=== PATIENT | female | born 1980 | race Two or more races ===

== ENCOUNTER 2022-12-03 12:32 | Inpatient (IN) | payer MEDICAID, OTHER ==
[~2022-12-03] VITALS: Ht 167.6 cm; Wt 88.3 kg
[2022-12-03] MEDS ORDERED: NITROGLYCERIN 0.4 MG SL TAB SL ONE (13:15)
[2022-12-03] MEDS ORDERED: ASPirin 325 MG TAB PO ONE (13:15)
[2022-12-03 13:18] LABS: Basophils # (auto) 0 10 ^3/uL (0-0.2); Basophils % (auto) 0.5 % (0.0-2.0); Eosinophils # (auto) 0.1 10 ^3/uL (0-0.8); Eosinophils % (auto) 0.9 % (0.0-7.0); Hematocrit 43.7 % (36.0-46.0); Hemoglobin 15.2 g/dL (12.2-16.2); Lymphocytes # (auto) 1.8 10 ^3/uL (0.4-5.4); Lymphocytes % (auto) 25.5 % (10.0-50.0); Mean Corpuscular Hgb Conc. 34.8 g/dL (32.0-36.0); Monocytes # (auto) 0.3 10 ^3/uL (0-1.3); Monocytes % (auto) 4.2 % (0.0-12.0); Neutrophils # (auto) 4.8 10 ^3/uL (1.6-8.6); Neutrophils % (auto) 68.9 % (37.0-80.0); Nucleated Red Blood Cells % 0.3 %; Red Blood Cells 4.91 10^6/uL (4.0-5.20); Red Cell Distribution Width 13.3 % (11.8-14.3)
[2022-12-03 13:31] LABS: INR 0.92 (0.9-1.15); Partial Thromboplastin Time 29.7 sec (24.6-33.4)
[2022-12-03 13:33] LABS: Albumin 3.8 g/dL (3.4-5.0); BUN/Creatinine Ratio 11.9; Magnesium 2.4 mg/dL (1.6-2.6); Potassium 4.1 mmol/L (3.5-5.1)
[2022-12-03 13:35] LABS: Bilirubin, Total 0.4 mg/dL (0.2-1.0); Total Protein 7.1 g/dL (6.4-8.2)
[2022-12-03] MEDS ORDERED: MORPHINE SULFATE INJ 2 MG/ml SYRG IV PRN (15:30)
[2022-12-03] MEDS ORDERED: TEMAZEPAM 15 MG CAP PO PRN (15:30)
[2022-12-03] MEDS ORDERED: LISINOPRIL 10 MG TAB PO ONE (15:30)
[2022-12-03] MEDS ORDERED: NITROGLYCERIN 0.4 MG SL TAB SL PRN (15:30)
[2022-12-03] MEDS ORDERED: ONDANSETRON HCL 4 MG/2 ML VIAL IV PRN (15:30)
[2022-12-03 17:27] LABS: Urine Bacteria NONE SEEN /hpf (None Seen); Urine Blood Negative /uL (Negative); Urine Mucus FEW (None Seen); Urine WBC 3 /hpf (0 - 5)
[2022-12-03 17:43] LABS: Alcohol, Urine < 3.0 mg/dL (0-10); Amphetamine Screen, Urine NEGATIVE (NEGATIVE); Barbiturate Scree,Urine NEGATIVE (NEGATIVE); Benzodiazephine Screen, Urine NEGATIVE (NEGATIVE); Cannabinoid Screen, Urine NEGATIVE (NEGATIVE); Cocaine Screen, Urine POSITIVE (NEGATIVE); Opiate Scree,Urine NEGATIVE (NEGATIVE); Phencyclidine Screen, Urine NEGATIVE (NEGATIVE)
[2022-12-03] MEDS: ACETAMINOPHEN 325 MG TAB PO PRN (18:09)
[2022-12-03] MEDS ORDERED: cloNIDine HCL 0.1 MG TAB PO PRN (18:15)
[2022-12-03 18:29] LABS: Cholesterol 195 mg/dL (< 200); Triglycerides 170 mg/dL (< 150)
[2022-12-03 18:31] LABS: HDL Cholesterol 38 mg/dL (40-59); LDL Cholesterol 131 mg/dL (< 100)
[2022-12-03] MEDS ORDERED: METH10T PO (20:50)
[2022-12-03] MEDS: ATORVASTATIN 20 MG TAB PO SCH (22:25)
[2022-12-03 22:28] VITALS: BP 132/65
[2022-12-03 22:54] VITALS: BP 132/65
[2022-12-03] MEDS ORDERED: ITRA100C2 PO (23:26)
[2022-12-04 05:19] VITALS: BP 132/78
[2022-12-04 06:41] LABS: Basophils # (auto) 0 10 ^3/uL (0-0.2); Basophils % (auto) 0.4 % (0.0-2.0); Eosinophils # (auto) 0.1 10 ^3/uL (0-0.8); Eosinophils % (auto) 1.4 % (0.0-7.0); Hematocrit 41.8 % (36.0-46.0); Hemoglobin 14.3 g/dL (12.2-16.2); Lymphocytes # (auto) 2.6 10 ^3/uL (0.4-5.4); Mean Corpuscular Hemoglobin 30.8 pg (28.0-32.0); Mean Corpuscular Hgb Conc. 34.2 g/dL (32.0-36.0); Mean Corpuscular Volume 90.3 fL (80.0-100.0); Monocytes # (auto) 0.3 10 ^3/uL (0-1.3); Monocytes % (auto) 4.3 % (0.0-12.0); Neutrophils # (auto) 3.3 10 ^3/uL (1.6-8.6); Neutrophils % (auto) 51.9 % (37.0-80.0); Nucleated Red Blood Cells % 0.3 %; Red Blood Cells 4.63 10^6/uL (4.0-5.20); Red Cell Distribution Width 13.1 % (11.8-14.3); White Blood Cell 6.3 10^3/uL (4.4-10.8)
[2022-12-04 07:26] LABS: Potassium 3.6 mmol/L (3.5-5.1)
[2022-12-04 07:40] LABS: BUN/Creatinine Ratio 21.7; Calcium 8.7 mg/dL (8.5-10.1)
[2022-12-04 09:20] VITALS: BP 100/58
[2022-12-04] MEDS ORDERED: ASPirin 81 mg TAB PO SCH (10:00)
[2022-12-04] MEDS ORDERED: LISINOPRIL 10 MG TAB PO SCH (10:00)
[2022-12-04] MEDS ORDERED: METHADONE HCL 10 MG TAB PO SCH (11:30)
[2022-12-04 13:00] VITALS: BP 125/61
[2022-12-04] MEDS ORDERED: NICOTINE 21MG/24 HR TOPICAL PATCH TD ONE (15:15)
[2022-12-04 16:00] VITALS: BP 127/68
[2022-12-04] MEDS: ACETAMINOPHEN 325 MG TAB PO PRN (20:09)
[2022-12-04] MEDS: ATORVASTATIN 20 MG TAB PO SCH (21:20)
[2022-12-05 05:54] VITALS: BP 114/56
[2022-12-05 07:25] LABS: Potassium 4.4 mmol/L (3.5-5.1)
[2022-12-05 07:28] LABS: BUN/Creatinine Ratio 32.9; Calcium 8.5 mg/dL (8.5-10.1)
[2022-12-05 07:34] LABS: Bilirubin, Total 0.2 mg/dL (0.2-1.0); Total Protein 5.9 g/dL (6.4-8.2)
[2022-12-05 07:58] LABS: Basophils # (auto) 0 10 ^3/uL (0-0.2); Basophils % (auto) 0.7 % (0.0-2.0); Eosinophils # (auto) 0.1 10 ^3/uL (0-0.8); Eosinophils % (auto) 1.7 % (0.0-7.0); Hematocrit 40.2 % (36.0-46.0); Hemoglobin 13.5 g/dL (12.2-16.2); Lymphocytes # (auto) 2.5 10 ^3/uL (0.4-5.4); Lymphocytes % (auto) 40.4 % (10.0-50.0); Mean Corpuscular Hemoglobin 30.6 pg (28.0-32.0); Mean Corpuscular Hgb Conc. 33.7 g/dL (32.0-36.0); Mean Corpuscular Volume 90.9 fL (80.0-100.0); Monocytes # (auto) 0.4 10 ^3/uL (0-1.3); Monocytes % (auto) 6.2 % (0.0-12.0); Neutrophils # (auto) 3.2 10 ^3/uL (1.6-8.6); Nucleated Red Blood Cells % 0.2 %; Red Blood Cells 4.42 10^6/uL (4.0-5.20); Red Cell Distribution Width 13.4 % (11.8-14.3); White Blood Cell 6.3 10^3/uL (4.4-10.8)
[2022-12-05] MEDS ORDERED: ATOR20TA50 PO (08:32)
[2022-12-05] MEDS ORDERED: NIC21P TD (08:32)
[2022-12-05] MEDS ORDERED: ASPI-325 PO (08:32)
[2022-12-05] MEDS ORDERED: LISI-716 PO (08:32)
[2022-12-05 08:51] VITALS: BP 112/62
[2022-12-05] MEDS ORDERED: NICOTINE 21MG/24 HR TOPICAL PATCH TD SCH (10:00)
== END 2022-12-05 12:51 | disposition home or self-care (01) | DRG 199 ==
LOC: ER 12:32 → TELE 15:27 → TELE-WESTW 21:55
PROVIDERS: ADMIT Nurse Practitioner; ATTEND Nurse Practitioner
DX: I16.0 Hypertensive urgency (principal); E78.5 Hyperlipidemia, unspecified; F14.10 Cocaine abuse, uncomplicated; F19.90 Other psychoactive substance use, unspecified, uncomplicated; F11.20 Opioid dependence, uncomplicated; Z20.822 Contact with and (suspected) exposure to COVID-19; I10 Essential (primary) hypertension; Z82.49 Family history of ischemic heart disease and other diseases of the circulatory system; Z72.0 Tobacco use; Z71.51 Drug abuse counseling and surveillance of drug abuser
CPT/HCPCS: 36415; 70450; 71045; 80048; 80053; 80061; 80307; 81001; 83735; 83880; 84484; 84702; 85025; 85610; 85730; 87426; 93005; 93306; G0378